=== PATIENT | male | born 1980 | race African-American/Black ===

== ENCOUNTER 2018-06-29 00:20 | Emergency (ER) | payer OTHER ==
[~2018-06-29] VITALS: Ht 182.9 cm; Wt 97.5 kg
[2018-06-29 00:58] LABS: INFLUENZA B ANTIGEN None Detected (None Detect)
[2018-06-29] MEDS ORDERED: OSELB75 PO (01:05)
[2018-06-29 01:13] VITALS: BP 117/74
== END 2018-06-29 01:13 | disposition home or self-care (01) ==
LOC: M.ERS 00:20
PROVIDERS: Nurse Practitioner Family
DX: J10.1 Influenza due to other identified influenza virus with other respiratory manifestations (principal)